=== PATIENT | male | born 1950 | race Caucasian/White ===

== ENCOUNTER 2021-04-30 16:30 | Inpatient (IN) | payer SELFPAY ==
[2021-04-30] MEDS ORDERED: ASPIRIN 81 MG CHEWABLE TABLETS PO ONE ×2 (17:35→20:08)
[2021-04-30] MEDS ORDERED: ATORVASTATIN CA 80 MG TABLET (FP) PO ONE (17:36)
[2021-04-30] MEDS ORDERED: SODIUM CHLORIDE 0.9% 1000 ML INFUS.BAG IV ONE (17:48)
[2021-04-30] MEDS ORDERED: ATORVASTATIN CA 80 MG TABLET (FP) ONE (18:14)
[2021-04-30] MEDS ORDERED: ASPIRIN 81 MG CHEWABLE TABLETS ONE (18:14)
[2021-04-30 19:45] LABS: BASO % 0.2 % (0-2.0); EOS % 0.6 % (0-4.5); HEMATOCRIT 44.4 % (32.4-45.2); HEMOGLOBIN 15.1 GM/dL (10.7-15.3); LYMPH % 17.1 % (8-40); MCH 30.8 pg (25.7-33.7); MEAN CELL VOLUME 90.7 fl (80-96); MONO % 5.7 % (3.8-10.2); NEUT % 76.4 % (42.8-82.8); PLATELET COUNT 222 10^3/uL (134-434); RDW 14.8 % (11.6-15.6); WHITE BLOOD COUNT 7.5 K/mm3 (4.0-10.0)
[2021-04-30 19:53] LABS: PROTHROMBIN TIME (PATIENT) 11.7 SEC (9.7-13.0)
[2021-04-30 19:56] LABS: ACTIVATED PTT 31.1 SECONDS (25.2-36.5)
[2021-04-30 20:33] LABS: CHLORIDE 103 mmol/L (98-107); SODIUM 138 mmol/L (136-145)
[2021-04-30 20:37] LABS: ALBUMIN 3.6 g/dl (3.4-5.0); ANION GAP 7 MMOL/L (8-16); BLOOD UREA NITROGEN 18.3 mg/dL (7-18); CALCIUM 8.6 mg/dL (8.5-10.1); CO2 27 mmol/L (21-32); GLUCOSE,RANDOM 266 mg/dL (74-106)
[2021-04-30 20:40] LABS: CREATININE 1.2 mg/dL (0.55-1.3); SGPT/ALT 19 U/L (13-61)
[2021-04-30 20:41] LABS: CHOLESTEROL 203 mg/dL (50-200); SGOT/AST 12 U/L (15-37); TRIGLYCERIDES 329 mg/dL (0-150)
[2021-04-30 20:42] LABS: BILIRUBIN,TOTAL 0.3 mg/dL (0.2-1); LDL CHOLESTEROL (ONLY SJRH) 109 mg/dL (5-100); TOT PROT 7.1 g/dl (6.4-8.2)
[2021-04-30 20:43] LABS: ALK PHOS 164 U/L (45-117); HDL CHOLESTEROL 58 mg/dL (40-60)
[2021-04-30 23:10] LABS: PH,URINE 7.5 (5.0-8.0); URINE APPEARANCE CLEAR; URINE BILIRUBIN NEGATIVE (NEGATIVE); URINE COLOR YELLOW; URINE GLUCOSE (UA) 2+ (NEGATIVE); URINE KETONE NEGATIVE (NEGATIVE); URINE LEUK ESTERASE NEGATIVE (NEGATIVE); URINE NITRITE NEGATIVE (NEGATIVE); URINE PROTEIN NEGATIVE (NEGATIVE)
[2021-04-30] MEDS ORDERED: HEPARIN NA (PORCINE) 5,000 UNITS/ML 1ML VIAL ONE (23:53)
[2021-05-01] MEDS: HEPARIN NA (PORCINE) 5,000 UNITS/ML 1ML VIAL SQ SCH ×3 (00:04→16:31)
[2021-05-01] MEDS ORDERED: LISINOPRIL 5 MG TABLET ONE (02:19)
[2021-05-01] MEDS: LISINOPRIL 5 MG TABLET PO SCH ×2 (02:22→09:49)
[2021-05-01 06:52] LABS: BASO % 0.4 % (0-2.0); EOS % 1.8 % (0-4.5); HEMATOCRIT 42.9 % (35.4-49); HEMOGLOBIN 14.8 GM/dL (11.7-16.9); MCHC 34.4 g/dl (32.0-35.9); MEAN CELL VOLUME 90.2 fl (80-96); MEAN PLT VOLUME 7.8 fl (7.5-11.1); MONO % 6.3 % (3.8-10.2); NEUT % 57.5 % (42.8-82.8); PLATELET COUNT 204 10^3/uL (134-434); RBC 4.76 M/mm3 (4.00-5.60); RDW 14.7 % (11.9-15.9); WHITE BLOOD COUNT 6.6 K/mm3 (4.0-10.0)
[2021-05-01 07:14] LABS: CALCIUM 8.1 mg/dL (8.5-10.1)
[2021-05-01 07:15] LABS: ALBUMIN 3.3 g/dl (3.4-5.0); BLOOD UREA NITROGEN 13.8 mg/dL (7-18); MAGNESIUM 2.2 mg/dL (1.8-2.4)
[2021-05-01 07:18] LABS: CREATININE 0.7 mg/dL (0.55-1.3); PHOSPHOROUS 3.7 mg/dL (2.5-4.9); TOT PROT 6.3 g/dl (6.4-8.2)
[2021-05-01 07:19] LABS: BILIRUBIN,TOTAL 0.7 mg/dL (0.2-1)
[2021-05-01] MEDS ORDERED: HEPARIN NA (PORCINE) 5,000 UNITS/ML 1ML VIAL ONE ×2 (09:43→16:26)
[2021-05-01] MEDS ORDERED: CLOPIDOGREL BISULFATE 75 MG TABLET (FP) ONE (09:43)
[2021-05-01] MEDS ORDERED: ASPIRIN COATED 81 MG TABLET.EC ONE (09:43)
[2021-05-01] MEDS: CLOPIDOGREL BISULFATE 75 MG TABLET (FP) PO SCH (09:49)
[2021-05-01] MEDS: ASPIRIN COATED 81 MG TABLET.EC PO SCH (09:49)
[2021-05-01] MEDS: INSULIN SLIDING SCALE (NOVOLOG) 1 VIAL SQ SCH ×3 (09:49→18:21)
[2021-05-01] MEDS ORDERED: INSULIN SLIDING SCALE (NOVOLOG) 1 VIAL SQ ONE (12:13)
[2021-05-01] MEDS ORDERED: ATORVASTATIN CA 40 MG TABLET (FP) PO SCH (22:00)
[2021-05-02] MEDS ORDERED: ATORVASTATIN CA 40 MG TABLET (FP) ONE (02:39)
[2021-05-02] MEDS ORDERED: HEPARIN NA (PORCINE) 5,000 UNITS/ML 1ML VIAL ONE (02:39)
[2021-05-02] MEDS: HEPARIN NA (PORCINE) 5,000 UNITS/ML 1ML VIAL SQ SCH ×3 (02:48→13:45)
[2021-05-02] MEDS: INSULIN SLIDING SCALE (NOVOLOG) 1 VIAL SQ SCH ×4 (02:48→17:19)
[2021-05-02 03:39] VITALS: BMI 26.3
[2021-05-02 08:43] LABS: BASO % 0.4 % (0-2.0); EOS % 1.9 % (0-4.5); HEMATOCRIT 42.8 % (35.4-49); HEMOGLOBIN 14.7 GM/dL (11.7-16.9); LYMPH % 35.4 % (8-40); MCHC 34.3 g/dl (32.0-35.9); MEAN CELL VOLUME 90.5 fl (80-96); MEAN PLT VOLUME 8.1 fl (7.5-11.1); MONO % 7.5 % (3.8-10.2); NEUT % 54.8 % (42.8-82.8); PLATELET COUNT 229 10^3/uL (134-434); RBC 4.74 M/mm3 (4.00-5.60); RDW 15.1 % (11.9-15.9); WHITE BLOOD COUNT 5.3 K/mm3 (4.0-10.0)
[2021-05-02] MEDS: ASPIRIN COATED 81 MG TABLET.EC PO SCH (09:23)
[2021-05-02] MEDS: CLOPIDOGREL BISULFATE 75 MG TABLET (FP) PO SCH (09:23)
[2021-05-02] MEDS: LISINOPRIL 5 MG TABLET PO SCH (09:24)
[2021-05-02 10:31] LABS: BILIRUBIN,TOTAL 0.6 mg/dL (0.2-1); TOT PROT 6.8 g/dl (6.4-8.2)
[2021-05-02 10:32] LABS: CREATININE 1.1 mg/dL (0.55-1.3)
[2021-05-02 10:37] LABS: ALBUMIN 3.3 g/dl (3.4-5.0); CALCIUM 8.7 mg/dL (8.5-10.1)
[2021-05-02 10:38] LABS: BLOOD UREA NITROGEN 16.7 mg/dL (7-18)
[2021-05-02 14:28] VITALS: BP 121/74; PULSE 85; TEMP 98.5
== END 2021-05-02 18:50 | disposition home or self-care (01) | DRG 45 ==
LOC: JER 16:30 → EDSEX 16:30 → JERBED 21:09 → J4S 05-02 03:06
DX: I63.9 Cerebral infarction, unspecified (principal); G81.94 Hemiplegia, unspecified affecting left nondominant side; I10 Essential (primary) hypertension; E11.9 Type 2 diabetes mellitus without complications; E78.5 Hyperlipidemia, unspecified; I51.89 Other ill-defined heart diseases; R29.701 NIHSS score 1; R29.810 Facial weakness
CPT/HCPCS: 36415; 70450-TC; 70551-TC; 71045-TC-FY; 80053; 80061; 81003; 82550; 82962; 83036; 83735; 84100; 84443; 84484; 85025; 85610; 85730; 86850; 86900; 86901; 93005; 93010; 93306-TC; 93880-TC; 97116-GP; 97161-GP; 99285-25; C9803; J1644; U0003; U0005